=== PATIENT | female | born 2000 | race African-American/Black ===

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

== ENCOUNTER 2019-03-23 15:53 | Emergency (ER) | payer OTHER ==
[~2019-03-23] VITALS: Ht 162.6 cm; Wt 56.7 kg
[2019-03-23 17:00] VITALS: BP 110/71
== END 2019-03-23 17:01 | disposition home or self-care (01) ==
LOC: ER 15:53
DX: S61.011A Laceration without foreign body of right thumb without damage to nail, initial encounter (principal); M06.9 Rheumatoid arthritis, unspecified; Z88.0 Allergy status to penicillin; W26.0XXA Contact with knife, initial encounter; Y93.89 Activity, other specified; Y92.89 Other specified places as the place of occurrence of the external cause; Y99.8 Other external cause status

== ENCOUNTER 2019-10-30 16:36 | Emergency (ER) | payer OTHER ==
[~2019-10-30] VITALS: Ht 165.1 cm; Wt 102.1 kg
[2019-10-30] MEDS ORDERED: CLINDAMYCIN HC300 MG PO (18:40)
[2019-10-30] MEDS ORDERED: TRAMADOL 50 MG50 MG PO (18:40)
[2019-10-30 19:09] VITALS: BP 111/74
== END 2019-10-30 19:09 | disposition home or self-care (01) ==
LOC: ER 16:36
DX: L02.411 Cutaneous abscess of right axilla (principal); Z88.0 Allergy status to penicillin